=== PATIENT | male | born 1950 | race Caucasian/White ===

== ENCOUNTER 2017-03-21 05:15 | Inpatient (IN) | payer OTHER ==
[2017-03-21] MEDS: CEFAZOLIN 2 GM/50 ML (PMX) 50 ML IVPB (06:50)
[2017-03-21] MEDS: LACTATED RINGER'S 500 ML IV (06:51)
[2017-03-21] MEDS ORDERED: GELATIN SIZE 100 SPONGE (06:52)
[2017-03-21] MEDS ORDERED: THROMBIN 5000 UNIT VIAL (06:53)
[2017-03-21] MEDS ORDERED: MIDAZOLAM 1 MG/ML 2 ML INJ (06:59)
[2017-03-21] MEDS ORDERED: SUCCINYLCHOLINE CHLORIDE 100 MG/5 ML SYG IV (06:59)
[2017-03-21] MEDS ORDERED: ROCURONIUM 50 MG INJ ×2 (06:59→08:49)
[2017-03-21] MEDS ORDERED: HYDROmorphONE 2 MG/ML SYG (06:59)
[2017-03-21] MEDS ORDERED: ONDANSETRON 4 MG INJ (07:00)
[2017-03-21] MEDS ORDERED: METOCLOPRAMIDE 10 MG INJ (07:00)
[2017-03-21] MEDS ORDERED: FENTAnyl 50 MCG/ML VIAL (07:01)
[2017-03-21] MEDS ORDERED: PHENYLephrine (100 MCG/ML) 5ML SYG (07:38)
[2017-03-21] MEDS: BUPIVACAINE 0.25% (MPF) 30 ML INJ (07:58)
[2017-03-21] MEDS: POLYMYXIN/BACITRACIN 1L IRRIG (07:58)
[2017-03-21] MEDS ORDERED: MEPERIDINE 25 MG INJ IV (08:30)
[2017-03-21] MEDS ORDERED: HYDROmorphONE (0.2 MG/ML) 10ML SYG IV (08:30)
[2017-03-21] MEDS ORDERED: DIPHENHYDRAMINE 50 MG INJ IV (08:30)
[2017-03-21] MEDS ORDERED: PROPOFOL 100 ML ×2 (08:52→10:44)
[2017-03-21] MEDS ORDERED: PROPOFOL 20 ML (08:52)
[2017-03-21] MEDS: HYDROmorphONE 0.2 MG/ML PCA IV (11:36)
[2017-03-21] MEDS ORDERED: DIAZEPAM 5 MG/ML SYG IM (12:00)
[2017-03-21] MEDS ORDERED: BETHANECHOL 25 MG TAB PO (12:00)
[2017-03-21] MEDS ORDERED: TRIMETHOBENZAMIDE 100 MG/ML VIAL IM (12:00)
[2017-03-21] MEDS ORDERED: ONDANSETRON 4 MG INJ IV (12:00)
[2017-03-21] MEDS ORDERED: NALOXONE (0.4 MG/ML) INJ IV (12:00)
[2017-03-21] MEDS ORDERED: ZOLPIDEM 5 MG TAB PO (12:00)
[2017-03-21] MEDS ORDERED: ACETAMINOPHEN 325 MG TAB PO (12:00)
[2017-03-21] MEDS ORDERED: NACL 0.9% 3 ML SYG IV (12:00)
[2017-03-21] MEDS ORDERED: PROCHLORPERAZINE 10 MG TAB PO (12:00)
[2017-03-21] MEDS: HYDROmorphONE (0.2 MG/ML) 10ML SYG IV ×4 (12:01→12:25)
[2017-03-21] MEDS: ONDANSETRON 4 MG INJ IV (12:07)
[2017-03-21] MEDS: CEFAZOLIN 1 GM/50 ML (PMX) 50 ML IVPB ×3 (12:30→23:38)
[2017-03-21] MEDS: DEXTROSE 5%-0.45% NACL 1,000 ML IV ×2 (15:58→21:11)
[2017-03-21] MEDS: CEPASTAT LOZENGE MT (20:51)
[2017-03-21] MEDS: RANITIDINE 150 MG TAB PO (20:51)
[2017-03-22] MEDS: DEXTROSE 5%-0.45% NACL 1,000 ML IV ×2 (02:07→17:11)
[2017-03-22] MEDS: HYDROmorphONE 0.2 MG/ML PCA IV (04:19)
[2017-03-22] MEDS: DIAZEPAM 5 MG TAB PO (04:25)
[2017-03-22] MEDS: CEFAZOLIN 1 GM/50 ML (PMX) 50 ML IVPB (05:15)
[2017-03-22 05:50] LABS: HEMATOCRIT 38.2 % (42.0-52.0); HEMOGLOBIN 13.5 g/dl (14.0-18.0)
[2017-03-22 06:31] LABS: ANION GAP 11 (8-16); BLOOD UREA NITROGEN 13 mg/dl (7-20); CALCIUM 7.9 mg/dl (8.4-10.2); CARBON DIOXIDE 26 mmol/L (21-31); CHLORIDE 102 mmol/L (97-110); CREATININE 0.94 mg/dl (0.61-1.24); GLUCOSE 119 mg/dl (70-220); POTASSIUM 3.9 mmol/L (3.5-5.1); SODIUM 135 mmol/L (135-144)
[2017-03-22] MEDS ORDERED: BETHANECHOL 25 MG TAB PO (08:00)
[2017-03-22] MEDS: HYDROCODONE/APAP (5/325) TAB PO ×4 (08:16→19:32)
[2017-03-22 09:26] LABS: ADD UMIC NO; UR ASCORBIC ACID NEGATIVE (NEGATIVE); UR BILIRUBIN (Dip) NEGATIVE (NEGATIVE); UR BLOOD (Dip) NEGATIVE (NEGATIVE); UR CLARITY CLEAR (CLEAR); UR COLOR STRAW (YELLOW); UR GLUCOSE (Dip) NEGATIVE (NEGATIVE); UR KETONES (Dip) NEGATIVE (NEGATIVE); UR LEUKOCYTE ESTERASE (Dip) NEGATIVE Leu/ul (NEGATIVE); UR NITRITE (Dip) NEGATIVE (NEGATIVE); UR SPECIFIC GRAVITY (Dip) 1.008 (1.003-1.030); UR TOTAL PROTEIN (Dip) NEGATIVE (NEGATIVE); UR UROBILINOGEN (Dip) NEGATIVE (NEGATIVE)
[2017-03-22] MEDS: FERROUS SULFATE (EC) 325 MG TAB PO ×3 (10:23→19:32)
[2017-03-22] MEDS: DOCUSATE SODIUM 100 MG CAP PO ×2 (10:23→19:32)
[2017-03-22] MEDS: ASCORBIC ACID 500 MG TAB PO ×2 (10:24→19:32)
[2017-03-22] MEDS: RANITIDINE 150 MG TAB PO ×2 (10:24→19:32)
[2017-03-22] MEDS: CEPASTAT LOZENGE MT (19:33)
[2017-03-23] MEDS: HYDROCODONE/APAP (5/325) TAB PO ×6 (00:45→21:56)
[2017-03-23] MEDS: DEXTROSE 5%-0.45% NACL 1,000 ML IV ×3 (03:11→23:11)
[2017-03-23] MEDS: CEPASTAT LOZENGE MT (05:22)
[2017-03-23] MEDS: RANITIDINE 150 MG TAB PO ×2 (09:24→20:42)
[2017-03-23] MEDS: FERROUS SULFATE (EC) 325 MG TAB PO ×3 (09:24→20:42)
[2017-03-23] MEDS: DOCUSATE SODIUM 100 MG CAP PO ×2 (09:24→20:42)
[2017-03-23] MEDS: ASCORBIC ACID 500 MG TAB PO ×2 (09:25→20:42)
[2017-03-23] MEDS: DIAZEPAM 5 MG TAB PO (17:55)
[2017-03-24] MEDS: HYDROCODONE/APAP (5/325) TAB PO ×3 (02:03→12:50)
[2017-03-24] MEDS: DIPHENHYDRAMINE 50 MG CAP PO (03:21)
[2017-03-24] MEDS: DEXTROSE 5%-0.45% NACL 1,000 ML IV (09:11)
[2017-03-24] MEDS: DOCUSATE SODIUM 100 MG CAP PO (09:34)
[2017-03-24] MEDS: FERROUS SULFATE (EC) 325 MG TAB PO ×2 (09:34→12:49)
[2017-03-24] MEDS: ASCORBIC ACID 500 MG TAB PO (09:34)
[2017-03-24] MEDS: RANITIDINE 150 MG TAB PO (09:34)
[2017-03-24] MEDS: AL HYDROX/MG HYDROX/SIMETH 30 ML CUP PO (09:38)
== END 2017-03-24 13:49 | disposition home or self-care (01) | DRG 520 ==
LOC: REC 05:15 → MS1 03-22 17:40
PROVIDERS: Orthopaedic Surgery
PROC: 0SB20ZZ Excision of Lumbar Vertebral Disc, Open Approach (ICD-10-PCS; principal; 2017-03-21 06:59)
PROC: 01NB0ZZ Release Lumbar Nerve, Open Approach (ICD-10-PCS; 2017-03-21 06:59)
PROC: 4A11X4G Monitoring of Peripheral Nervous Electrical Activity, Intraoperative, External Approach (ICD-10-PCS; 2017-03-21 06:59)
DX: M48.061 Spinal stenosis, lumbar region without neurogenic claudication (principal); F17.210 Nicotine dependence, cigarettes, uncomplicated; M51.26 Other intervertebral disc displacement, lumbar region; R73.03 Prediabetes; E78.00 Pure hypercholesterolemia, unspecified
CPT/HCPCS: 71045; 72020; 80048; 81003; 82962; 85014; 85018; 86850; 86900; 86901; 86920; 87086; 97116; 97163; 97530